=== PATIENT | male | born 1985 | race Caucasian/White ===

== ENCOUNTER 2020-04-13 16:38 | Emergency (ER) | payer SELFPAY ==
[~2020-04-13] VITALS: Ht 170.2 cm; Wt 65.8 kg
[2020-04-13 16:45] VITALS: BP 134/57
[2020-04-13] MEDS ORDERED: LIDOCAINE 1% INJ 50 ML MDV IJ ONE (16:49)
[2020-04-13] MEDS ORDERED: LIDOCAINE 1%-EPI 1:100,000 50 ML VIAL IJ ONE (17:00)
== END 2020-04-13 17:25 | disposition home or self-care (01) ==
LOC: ER 16:41
DX: S61.211A Laceration without foreign body of left index finger without damage to nail, initial encounter (principal); W26.0XXA Contact with knife, initial encounter; Y93.89 Activity, other specified; Y92.89 Other specified places as the place of occurrence of the external cause; Y99.8 Other external cause status
CPT/HCPCS: 12002; 99282; J3490 ×2